=== PATIENT | female | born 2005 | race Caucasian/White ===

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

== ENCOUNTER 2023-04-11 10:56 | Emergency (ER) | payer BC, SELFPAY ==
--- NOTE | 2023-04-11 10:59 | XR_ITS ---
PROCEDURE INFORMATION: Exam: XR Right Ankle Exam date and time: 04/11/2023 11:06 AM Age: 17 years old Clinical indication: Pain; Ankle; Right; Additional info: Pain twisted ankle during a fall TECHNIQUE: Imaging protocol: Radiologic exam of the right ankle. Views: 3 or more views. Total images: 3 COMPARISON: No relevant prior studies available. FINDINGS: Bones/joints: No evidence of acute fracture or dislocation. Soft tissues: Soft tissues are within normal limits. IMPRESSION: No evidence of acute fracture or dislocation.
[2023-04-11 11:25] VITALS: BP 131/79; PULSE 108; RESP 20; TEMP 36.9; O2SAT 98; BMI 27.4
--- NOTE | 2023-04-11 11:35 | EXP.UTC ---
Discharge Plan Disposition Patient Disposition: Home, Self-Care Condition: Good Prescriptions Prescriptions: No Action Lo Loestrin Fe 1 mg-10 mcg (24)/10 mcg (2) tablet 1 tab PO DAILY Patient Comments: TAKE 1 TABLET BY MOUTH ONCE DAILY Referrals Follow up/Referrals: Nilson Tapia DO [Staff Physician] - See instructions Ginny Greenwood APRN [Primary Care Provider] - See instructions Leana Hines DPM [Staff Physician] - See instructions (Call the office for appointment with one of the providers ) Activity Restrictions/Add. Instructions Additional Instructions/Restrictions: *weight bearing as tolerated use crutches to help get around for the next few days *RICE, Rest the extremity, Ice 15-20 minutes 3-4 times daily, Compress- wear the noe wrap as discussed as much as possible to help reduce swelling and pain, Elevate the extremity when at rest *Walking boot is for support and help control swelling, use it except in the shower. Be sure that is not to tight but not to loose either *Elevate when resting? *Ibuprofen 600-800mg every 6-8 hours as needed for pain an inflammation if you can take it . If not or you need something more can take Tylenol in between doses of Ibuprofen to help Immediately follow up with your family doctor for new or worsening of symptoms, or no noticeable improvement over the next 3-5 days Follow up with Orthopedics or Podiatry if no improvement Clinical Impressions Clinical Impression: Ankle sprain Qualifiers: Encounter type: initial encounter Involved ligament of ankle: unspecified ligament Laterality: right Qualified Code(s): S93.401A - Sprain of unspecified ligament of right ankle, initial encounter Instructions Patient Instructions: Ankle Sprain, DI for Ankle Sprain Discharge ED Provider: Eli Katz [facility] General Stated complaint: [id number] right ankle pain Time Seen by Provider: 04/11/23 11:35 History of Present Illness Provider Complaint: Patient states that she was standing on the couch turning off a warmer and as she went to step off the couch she rolled her right ankle States that since then she has been having pain and swelling in her right ankle and hurts when she tries to walk on it States that this morning the swelling was a little better but still hurts when she tries to put pressure on it so she came in to get checked Related Data Home Medications Medication Instructions Recorded Confirmed norethindrone 1 mg-ethinyl 1 tab PO DAILY 04/11/23 04/11/23 estradiol 10 mcg (24)-iron 10 mcg(2) tablet (Lo Loestrin Fe) Allergies Allergy/AdvReac Type Severity Reaction Status Date / Time No Known Allergies Allergy Verified 03/20/19 13:54 [facility] Disclaimer: The information contained in this section may have been updated after the patient was seen, as this information can be updated by other users. Medical History (Updated 04/11/23 @ 11:43 by Eli Katz APRN) No significant past medical history Social History Smoking Status: Never smoker alcohol intake: never substance use type: denies use current occupational status: student Travel in the last 8 weeks: Inside the [place] ROS Obtained: Yes All systems reviewed & no additional complaints except as documented and Yes Systems reviewed as appropriate & no additional complaints except as documented Constitutional Constitutional: Reports system reviewed and no additional complaints, except as documented and Reports as per HPI ENT Ears, Nose, Mouth, and Throat: Reports system reviewed and no additional complaints, except as documented and Reports as per HPI Cardiovascular Cardiovascular: Reports system reviewed and no additional complaints, except as documented and Reports as per HPI Respiratory Respiratory: Reports system reviewed and no additional complaints, except as documented and Reports as per HPI Gastrointestinal Gastrointestingal: Reports system r
[2023-04-11 11:42] VITALS: BP 131/79; PULSE 108; RESP 20; TEMP 36.9; O2SAT 98
== END 2023-04-11 11:53 | disposition home or self-care (01) ==
PROVIDERS: Emergency Provider Nurse Practitioner; PCP Nurse Practitioner Family
DX: S93.401A Sprain of unspecified ligament of right ankle, initial encounter (principal); M25.571 Pain in right ankle and joints of right foot; X50.1XXA Overexertion from prolonged static or awkward postures, initial encounter
CPT/HCPCS: 73610; 99204; 99212; G0463

== ENCOUNTER → 2023-04-16 13:48 | Outpatient (CLI) | payer BC, SELFPAY ==
[2023-04-18 08:57] LABS: Hepatitis B Surf Ab Quant <3.1 mIU/mL (Immunity>9.9)
== END ==
PROVIDERS: PCP Nurse Practitioner Family; Visit Provider Nurse Practitioner Family
DX: Z92.29 Personal history of other drug therapy (principal)
CPT/HCPCS: 36415; 86706

== ENCOUNTER 2023-12-13 17:34 | Outpatient (CLI) | payer BC, SELFPAY | END 2023-12-13 23:59 | disposition home or self-care (01) | LOC: RT 17:35 | PROVIDERS: PCP Nurse Practitioner Family; Visit Provider Nurse Practitioner Family | DX: R00.0 Tachycardia, unspecified (principal); R07.89 Other chest pain | CPT/HCPCS: 93225; 93226; 93227 ==

== ENCOUNTER 2023-12-22 09:54 | Outpatient (CLI) | payer BC, SELFPAY ==
--- NOTE | 2023-12-22 10:00 | CA_ITS ---
APPROVED REPORT EXAM: Comprehensive 2D, Doppler, and color-flow Echocardiogram Sign Writer Letterer Or Painter: Veda Humphries RDCS Ht: 5 ft 6 in Wt: 178lbs BSA: 1.90 BP: 120/60 mmHg Indications: TACHYCARDIA,CP 2D Dimensions Left Atrium 3.19 cm F: 2.7 - 3.8 EF AP4 56.30 % GL Strain -20.1 % M-Mode Dimensions RVDd 2.04 cm (0.9-2.6) LVDd 5.25 cm (3.5-5.7) Ao Diam 2.62 cm (2.0-3.7) LVDs 3.91 cm (3.5-5.7) IVSd 0.55 cm (0.6-1.1) PWd 0.75 cm (0.6-1.1) EF (Teich) 49.90% FS 25.50% EDV (Teich) 132.40 mL ESV (Teich) 66.30 mL LV Diastology E Decel Time 122 (160-240 msec) E/A Ratio 1.3 MED E' 11.9 (>= 7 cm/sec) E'/MED E' Ratio 7.33 (<= 14) LAT E' 15.5 (>= 10 cm/sec) E/LAT E' Ratio 5.63 (<= 14) Mitral Valve MV E Max Ha. 87.0 (40-130 cm/s) MV A Velocity 66.0 (40-130 cm/s) E/A Ratio 1.31 MV Decel. Time 122 (160-240 ms) Left Ventricle The left ventricle is normal size. The left ventricular systolic function is normal. The left ventricular ejection fraction is within the normal range. There is normal left ventricular wall thickness. There is normal LV segmental wall motion. The left ventricular diastolic function is normal. LVEF is 55%. Right Ventricle The right ventricle is normal size. The right ventricular systolic function is normal. Atria The left atrium size is normal. The right atrium size is normal. There is no Doppler evidence of interatrial shunt. Aortic Valve The aortic valve is normal in structure. The aortic valve is trileaflet. There is no aortic valvular stenosis. No aortic regurgitation is present. Mitral Valve The mitral valve is normal in structure. No evidence of mitral valve stenosis. Trace mitral regurgitation. Tricuspid Valve The tricuspid valve leaflets are thin and pliable. Trace tricuspid regurgitation. There is insufficient TR jet to estimate RVSP. Pulmonic Valve The pulmonary valve is normal in structure. Trace pulmonic regurgitation. Great Vessels The aortic root is normal in size. The ascending aorta is not well-visualized. IVC is normal in size and collapses >50% with inspiration. Pericardium There is no pericardial effusion. Other Information Study Quality: Adequate Conclusion Normal biventricular systolic function. No significant valvular stenosis or regurgitation. Electronically signed by : Michelle Zaragoza MD 12/22/2023 13:43:10
== END 2023-12-22 23:59 | disposition home or self-care (01) ==
LOC: RT 09:59
PROVIDERS: PCP Nurse Practitioner Family; Visit Provider Nurse Practitioner Family
DX: R07.89 Other chest pain (principal); R00.0 Tachycardia, unspecified
CPT/HCPCS: 93306

== ENCOUNTER 2023-12-24 13:09 | Outpatient (CLI) | payer BC, SELFPAY ==
[2023-12-24 13:58] LABS: Basophils # 0.1 K/mm3 (0-0.2); Basophils % 1.1 % (0.1-2.0); Eosinophils # 0.1 K/mm3 (0.0-0.4); Eosinophils % 1.7 % (0.1-12.0); Hematocrit 41.5 % (37.0-47.0); Hemoglobin 14.2 g/dL (12.2-16.2); Lymphocytes # 1.6 K/mm3 (0.7-4.5); Lymphocytes % 32.5 % (10-50); Mean Corpuscular HGB Conc 34.3 g/dL (31.8-35.4); Mean Corpuscular Hemoglobin 31.1 pg (27.0-31.2); Mean Corpuscular Volume 90.6 fl (81-99); Mean Platelet Volume 7.1 fl (7.4-10.4); Monocytes # 0.2 K/mm3 (0.1-1.0); Neutrophils # 3.1 K/mm3 (1.8-7.8); Neutrophils % 60.8 % (37.0-80.0); Platelet Count 300 K/mm3 (142-424); Red Blood Count 4.58 M/mm3 (4.20-5.40); Red Cell Distribution Width 13.5 % (11.5-17.5)
[2023-12-24 14:15] LABS: Alanine Aminotransferase 23 U/L (12-78); Albumin Level 4.3 g/dl (3.5-5.0); Albumin/Globulin Ratio 1.5 (1.1-1.8); Alkaline Phosphatase 73 U/L (38-126); Anion Gap 13.6 mEq/L (5-15); Aspartate Amino Transferase 24 U/L (14-36); Bilirubin,Total 0.9 mg/dl (0.2-1.3); Blood Urea Nitrogen 8 mg/dl (7-17); Calcium 10.1 mg/dl (8.4-10.2); Carbon Dioxide 24 mmol/L (22.0-30.0); Chloride 107 mmol/L (98-107); Estimated Glomerular Filt Rate 91 ml/min (>60); GFR (African American) 111 ML/MIN (>60); Globulin 2.9 g/dL (1.3-3.2); Glucose 85 mg/dl (74-100); Magnesium 2.1 mg/dl (1.6-2.3); Potassium 4.6 mmoL/L (3.5-5.1); Sodium 140 mmol/L (136-145); Total Protein,Serum 7.2 g/dl (6.3-8.2)
[2023-12-24 14:17] LABS: Hemoglobin A1C 4.7 % (4.0-6.0)
[2023-12-24 14:34] LABS: Free T4 (Free Thyroxine) 1.23 ng/dl (0.78-2.19)
[2023-12-24 14:44] LABS: Thyroid Stimulating Hormone 1.26 uIU/mL (0.465-4.68)
== END 2023-12-24 23:59 | disposition home or self-care (01) ==
LOC: LAB 13:13
PROVIDERS: PCP Nurse Practitioner Family; Visit Provider Nurse Practitioner Family
DX: R00.0 Tachycardia, unspecified (principal)
CPT/HCPCS: 36415; 80050; 80053; 83036; 83735; 84439; 84443; 85025